=== PATIENT | male | born 1975 | race Hispanic/Latino ===

== ENCOUNTER 2017-05-21 12:50 | Emergency (ER) | payer SELFPAY ==
[~2017-05-21] VITALS: Ht 167.6 cm; Wt 73.5 kg
[2017-05-21] MEDS ORDERED: MILK OF MAGNESIA 400 MG/5 ML 30 ML UDC PO ONE (13:30)
--- NOTE | 2017-05-21 13:56 | ED Abdominal Pain ---
General Chief Complaint: Abdominal/GI Problems Stated Complaint: ABD PAIN Nursing Triage Note: AMB TO ED WITH C/O OF L UPPER ABD PAIN FOR 5 YEARS PROBLEMS FOR CONSTIPATION. PAIN WORSE LAST FEW WEEKS. 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 PATIENT UNDERSTANDS SOME QUESTIONS. Sepsis Screen: No Definite Risk History of Present Illness Time Seen By Provider: 13:20 Initial Comments Evaluation for abdominal pain and constipation. The patient states he is dealt with constipation for 5 years. He was recently evaluated at urgent care for this and started on a powder packet to help with the constipation, he is unsure of the name of the medicine in the packet. He reports that it has not improved his constipation. He reports passing a small hard stool this morning and yesterday. He does report passing flatus. He denies nausea or vomiting. He's had no changes in his dietary pattern. Timing/Duration: Intermittent (pain comes and goes, left lower quadrant) Severity/Quality: Mild Location: LLQ Radiation: No Radiation Activities at Onset: None Modifying Factors: Improves With Defecating Associated Symptoms: Denies Symptoms Allergies and Home Medications Allergies Coded Allergies: No Known Drug Allergies (Unverified , 05/21/17) Home Medications No Active Prescriptions or Reported Meds Review of Systems Constitutional: no symptoms reported, see HPI Gastrointestinal: See HPI, Abdominal Pain (left lower quadrant), Constipated, Denies Diarrhea, Denies Nausea, Denies Poor Appetite, Denies Poor Fluid Intake, Denies Rectal Bleeding, Denies Vomiting Genitourinary: No Symptoms Reported, See HPI All Other Systems Reviewed Negative Unless Noted: Yes Past Oyfcata-Clcaqy-Dkywxr Hx Patient Social History Alcohol Use: Denies Use Recreational Drug Use: No Smoking Status: Never a Smoker Recent Foreign Travel: No Contact w/Someone Who Travel: No Recent Infectious Disease Expo: No Reviewed Nursing Assessment Reviewed/Agree w Nursing PMH: Yes Physical Exam Vital Signs VS - Last 72 Hours, by Label 05/21/17 05/21/17 13:03 14:15 Temp 97.8 97.8 Pulse 62 62 Resp 18 18 B/P (MAP) 146/74 Pulse Ox 98 98 O2 Delivery Room Air Capillary Refill : Less Than 3 Seconds General Appearance: WD/WN, no apparent distress HEENT: PERRL/EOMI, normal ENT inspection, TMs normal, pharynx normal, other ( cataract present on right eye, this is chronic he has had previous recommendations for surgery but has not followed up. Oral mucosa pink and moist) Neck: non-tender, full range of motion, supple, normal inspection Respiratory: chest non-tender, lungs clear, normal breath sounds, no respiratory distress, no accessory muscle use Cardiovascular: normal peripheral pulses, regular rate, rhythm, no edema, no murmur, other (cap Refill less than 3 seconds) Gastrointestinal: normal bowel sounds, soft, no organomegaly, no pulsatile mass , distended (slightly), No guarding, No rebound, tenderness (left lower quadrant to deep palpation), other (negative Steinberg sign) Extremities: normal range of motion, non-tender, normal inspection, no pedal edema, normal capillary refill Back: normal inspection, no CVA tenderness Neurologic/Psychiatric: no motor/sensory deficits, alert, normal mood/affect, oriented x 3 Skin: normal color, warm/dry Lymphatic: no adenopathy Progress/Results/Core Measures Results/Orders My Orders Orders - WESLEY ANDREWS Abdomen/Kub 1view (05/21/17 13:27) Magnesium Hydroxide Oral Susp (Mom Oral (05/21/17 13:30) Medications Given in ED Current Medications Medications Dose Ordered Sig/Dudley Route Start Time Stop Time Status Last Admin Dose Admin Magnesium Hydroxide 30 ml ONCE ONCE PO 05/21/17 13:30 05/21/17 13:31 DC 05/21/17 13:47 30 ML Vital Signs/I&O Vital Sign - Last 12Hours 05/21/17 05/21/17 13:03 14:15 Temp 97.8 97.8 Pulse 62 62 Resp 18 18 B/P (MAP) 146/74 Pulse Ox 98 98 O2 Delivery Room Air Blood Pressure Mean: 98 Progress Note : Time: 13:20 Progress Note Initial evaluation completed, will obtain KUB and milk of magnesia 30 ML by mouth. Diagnostic Imaging Diagonstic Imaging: Xray Plain Films/CT/US/NM/MRI: abdomen Comments NAME: ANDREWS [facility] REC#: [id number] PHYSICIAN: WESLEY ANDREWS CC: NATHALIE MCCRACKEN; WESLEY ANDREWS Page 1 of 1 RADIOLOGY REPORT VIA [place], [place] CC: NATHALIE MCCRACKEN; WESLEY ANDREWS Page 1 of 1 RADIOLOGY REPORT NAME: ANDREWS [facility] REC#: [id number] PT STATUS: REG ER : 1975 PHYSICIAN: WESLEY ANDREWS ADMIT DATE: 05/21/17/ER Signed Date of Exam: 05/21/17 ABDOMEN/KUB 1VIEW INDICATION: Abdominal pain. COMPARISON: None. FINDINGS: Single view of the abdomen demonstrates nondistended bowel gas pattern. There is no abnormal calcification. No significant constipation is seen. There is no large pocket of free air. The osseous structures are normal. IMPRESSION: Negative KUB. Dictated by: Dictated on workstation # [id number] Dict: 05/21/17 1340 Trans: 05/21/17 1502 Interpreted by: NATHALIE MCCRACKEN Electronically signed by: NATHALIE MCCRACKEN 05/21/17 1502 Reviewed: Reviewed by Me Departure Impression Impression: Primary Impression: Constipation Qualified Codes: K59.04 - Chronic idiopathic constipation Additional Impression: Abdominal pain Qualified Codes: R10.32 - Left lower quadrant pain Disposition: 01 HOME, SELF-CARE Condition: Stable Departure-Patient Inst. Decision time for Depature: 13:50 Referrals: NO,LOCAL PHYSICIAN (PCP) Primary Care Physician Patient Instructions: Constipation, Adult (DC) Add. Discharge Instructions: Obtain MiraLAX [id number], for capfuls and a large Gatorade and drink for 2 hours today. Take one capful of MiraLAX twice daily beginning tomorrow. Continue taking the MiraLAX for 1 week. If stools become loose, decreased to one dose daily. If improving constipation continue taking. May also take [id number] stool softener, Colace one by mouth daily, for hard stools. Increase water intake to 6-8 bottles a day. Increase walking. Increase fiber in diet. Establish with primary care provider. Return to emergency department for increased abdominal pain, fever greater than 101, or new problems. All discharge instructions reviewed with patient and/or family. Voiced understanding. Scripts No Active Prescriptions or Reported Meds WESLEY ANDREWS May 21, 2017 13:56
[2017-05-21 14:15] VITALS: BP 146/74
--- NOTE | 2017-05-21 14:25 | Diagnostic Imaging Report ---
INDICATION: Abdominal pain. COMPARISON: None. FINDINGS: Single view of the abdomen demonstrates nondistended bowel gas pattern. There is no abnormal calcification. No significant constipation is seen. There is no large pocket of free air. The osseous structures are normal. IMPRESSION: Negative KUB. Dictated by: Dictated on workstation # [id number]
== END 2017-05-21 14:15 | disposition home or self-care (01) ==
LOC: EDUNIT# 12:50 → ER 12:53
DX: K59.00 Constipation, unspecified (principal); R10.32 Left lower quadrant pain
CPT/HCPCS: 74000; 99283